=== PATIENT | female | born 1975 | race Caucasian/White ===

== ENCOUNTER 2017-04-19 11:15 | Emergency (ER) | payer OTHER ==
[~2017-04-19 11:15] MED LIST: ALBUTEROL17 G1 IH; BENZONATATE PO; DARVOCET-N 1001 TAB PO; ERYTHROMYCIN250 M1 PO; HCTZ; HYDROCHLOROTHIA25 MG PO; MEDROL DOSEPAK4 MG DOB; ORUDIS75 M1 PO; PAXIL PO; PHENERGAN PO; PROPRANOLOL PO; TAMIFLU75 M1 PO; ZITHROMAX PO
[2017-04-19 12:45] LABS: URINE SOURCE CLEAN CATCH
[2017-04-19 12:49] LABS: URINE APPEARANCE CLEAR; URINE BILIRUBIN NEG (NEG); URINE BLOOD TRACE (NEG); URINE COLOR YELLOW; URINE GLUCOSE NEG (NEG); URINE KETONE NEG (NEG); URINE LEUKOCYTE ESTERASE NEG (NEG); URINE NITRATE POS (NEG); URINE PH 5.5 (5-8); URINE PROTEIN NEG (NEG); URINE SPECIFIC GRAVITY 1.005 (1.003-1.035); URINE UROBILINOGEN 0.2 MG/DL (NEG)
[2017-04-19 12:51] LABS: CULTURE INDICATED? YES; URBCS1 AUWI 0-2 /[HPF] (0-2); URINE BACTERIA AUWI 4+ (NEGATIVE); URINE SQUAMOUS EPITHELIAL CELL OCC /[HPF]; UWBCS1 AUWI 0-2 (0-5)
== END 2017-04-19 13:09 | disposition home or self-care (01) ==
LOC: CED 11:15 → CFTX 11:15
PROVIDERS: Physician Assistant Medical
DX: M54.42 Lumbago with sciatica, left side (principal); N30.00 Acute cystitis without hematuria; Z91.040 Latex allergy status; Z98.890 Other specified postprocedural states
CPT/HCPCS: 81003; 87086; 87088; 87186; 99283